=== PATIENT | male | born 1980 | race Caucasian/White ===

== ENCOUNTER 2018-07-29 22:36 | Emergency (ER) | payer OTHER ==
[~2018-07-29] VITALS: Ht 182.9 cm; Wt 108.9 kg
[2018-07-30] MEDS ORDERED: NAPROSYN500 MG PO (01:04)
[2018-07-30] MEDS ORDERED: PENICILLIN VK500 M1 PO (01:04)
[2018-07-30 01:27] VITALS: BP 133/88
== END 2018-07-30 01:28 | disposition home or self-care (01) ==
LOC: ER 22:36
DX: S02.5XXA Fracture of tooth (traumatic), initial encounter for closed fracture (principal); K02.9 Dental caries, unspecified; F17.210 Nicotine dependence, cigarettes, uncomplicated; X58.XXXA Exposure to other specified factors, initial encounter; Y92.89 Other specified places as the place of occurrence of the external cause; Y93.89 Activity, other specified; Y99.8 Other external cause status